=== PATIENT | male | born 1940 | race Caucasian/White ===

== ENCOUNTER 2016-09-07 07:01 | Day surgery (SDC) | payer MEDICARE ==
[~2016-09-07] VITALS: Ht 177.8 cm; Wt 101.3 kg
[2016-09-07] VITALS (19 sets, daily range): BP systolic 83–210; BP diastolic 31–94
[~2016-09-07 07:01] MED LIST: FESO4TAB2 PO; LACTATED RINGERS 1,000 ML IV SCH; LIDOCAINE/EPINEPHRINE 1%-1:100,000 (XYLOCAINE) 20ML VIAL ONE; ROPIVACAINE 0.2% 100 ML ONE; SIMV80TA3 PO
--- OUTSIDE RECORDS SUMMARY | 2016-09-07 07:05 | XMS REPORT | Summary of Care ---
Author Author Terence Peña T. K. 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, M19.041) Status: Active Pes anserinus bursitis of left knee (726.61, M70.52) Status: Active Primary osteoarthritis of both feet (715.17, M19.071) Status: Active Moderate aortic valve stenosis (424.1, I35.0) Status: Active Medications Name Dates Details Medication not documented Allergies and Adverse Reactions Name Dates Details No Known Drug Allergies (Allergy) Status: Active Past Medical History Name Dates Details History of No known problems (V49.89, Z78.9) Status: Resolved Procedures Procedure Dates Details History of Shoulder Surgery History of Hernia Repair Cardiology Precert (within facility) Ordered: 01-May-2016 CP Echo Ordered: 01-May-2016 Immunization Name Dates Details Immunizations not documented Family History Name Dates Details Family history of CABG Status: Active Name Dates Details Family history of Diabetes Mellitus (V18.0) Status: Active Social History Name Dates Details - Status: Name Dates Details Former smoker Vital Signs Date Test Result Details 01-May-2016 09:45 BP Systolic 148 mm[Hg] Status: Comments: Location: ; Position: BP Diastolic 70 mm[Hg] Status: Comments: Location: ; Position: Heart Rate 55 /min Status: Comments: Location: ; Weight 227.125 lb Status: Physical Findings 96 Status: Comments: O2 Saturation Body Mass Index Calculated 32.59 kg/m2 Status: Body Surface Area Calculated 2.2 m2 Status: Results Date Description Value Details 01-May-2016 08:54 ECG/ EKG (Specialists) Electro CardioGram 13:20 CP Echo Y Linked PDF Report Available for Review by Clicking ImageLink Button Plan of Care Name Dates Details Planned Observations Planned Goals not documented Instructions Name Dates Details Instructions not documented Encounters Appointment; Crys Pratt M.D. Encounter Diagnosis: Problem not documented On 01-May-2016 10:15 Appointment; Avery Jones M.D. Encounter Diagnosis: Problem not documented On 09-Dec-2015 12:30 Appointment; Crys Pratt M.D. Encounter Diagnosis: Problem not documented On 03-May-2015 10:00
[2016-09-07] MEDS: SODIUM CHLORIDE FLUSH 3 ML SYR IV PRN ×2 (07:56→13:01)
[2016-09-07] MEDS ORDERED: MIDAZOLAM 2 MG/2 ML (VERSED) VIAL ONE (08:06)
[2016-09-07] MEDS ORDERED: REMIFENTANIL 1 MG (ULTIVA) VIAL IV ONE (08:07)
[2016-09-07] MEDS ORDERED: PROPOFOL 40 ML IV ONE (08:12)
[2016-09-07] MEDS ORDERED: ONDANSETRON 2 MG/ML (Z0FRAN) 2 ML VIAL ONE (08:32)
[2016-09-07] MEDS ORDERED: ONDANSETRON 2 MG/ML (Z0FRAN) 2 ML VIAL IV PRN (10:10)
[2016-09-07] MEDS ORDERED: METOCLOPRAMIDE 10 MG/2 ML (REGLAN) VIAL IV PRN (10:10)
[2016-09-07] MEDS ORDERED: morphine INJ 4 MG/ML 1 ML SYRINGE IV PRN (10:10)
[2016-09-07] MEDS ORDERED: KETOROLAC 15 MG/ML (TORADOL) 1 ML VIAL IV PRN (10:15)
--- NOTE | 2016-09-07 10:44 | NUR ---
ANESTHESIA NOTIFIED OF INCREASING BLOOD PRESSURE AND LOW PULSE RATE. INSTRUCTIONS GIVEN TO NOTIFY PRIMARY DR. DR ESTRADA'S NURSE GELACIO NOTIFIED AND IS GOING TO CALL AFTER SHE HAS TALKED TO
--- NOTE | 2016-09-07 10:47 | OPERATIVE REPORT ---
DATE OF OPERATION: 09/07/2016 PRE-OPERATIVE DIAGNOSIS: Right inguinal hernia. POST-OPERATIVE DIAGNOSIS: 1. Right inguinal hernia. 2. Evidence of previous right inguinal surgery. OPERATIVE PROCEDURE: Right inguinal hernia repair with mesh plug. SURGEON: Sebastian William MD ASSEM[employer]ER [employer]Y: COLTON Peña ANESTHESIA: Monitored anesthesia care with local. INDICATION: Mr. Kaur is a 75-year-old referred by Dr. Parth Storey with a symptomatic right inguinal hernia. He has had a previous inguinal hernia and an umbilical hernia repaired. He presents today for elective repair of this right-sided hernia. DESCRIPTION OF PROCEDURE: The patient was informed of the risks and benefits and agreed to proceed. He was taken to the operating room and place supine on a standard operating table. He was administered IV sedation. When properly sedated, his right groin was prepped and draped in standard sterile fashion. There is a long oblique surgical scar well below the inguinal ligament that does not correspond to any of his listed previous operations, and was not noticed when I examined him in the office. 1% lidocaine with epinephrine was used to achieve a right ilioinguinal nerve block, and then the anesthetic was injected in the skin above the inguinal crease. A transverse incision was made with a 15-blade scalpel through the skin to the pubic tubercle and lateral out over the inguinal canal. That section was carried forth with cautery through the Benoit's fascia and the subcutaneous adipose tissue. Small branches of the superficial epigastric vein were easily cauterized and none of these were of significant size. The external oblique fascia was exposed and the retractors repositioned. This fascia was then opened longitudinally down to the external inguinal ring. Blunt dissection was used to separate the inguinal canal contents from the underside of the external oblique fascia, and it was readily apparent that the anatomy was unusual. The spermatic cord did not appear to be in its usual location, and the internal inguinal ring appeared to have been moved medially to a location right above the pubic tubercle, where the hernia sac could easily been seen. The floor of the inguinal canal, which consisted of the internal oblique muscle, appeared to be strong and intact with no evidence of hernia in that location. Blunt dissection was used to encircle the hernia sac and the spermatic cord structures over the pubic tubercle and a Juliana drain was used for retraction. The hernia sac was then gently dissected away from the cord structures until it was mobilized down to its entrance from underneath the internal oblique muscle. The hernia sac was then gently opened and its contents, consisting of fat, were reduced. The sac was twisted and suture ligated with 2-0 Vicryl and removed. This essential represented an indirect hernia, except that the location of the hernia was right over the pubic tubercle. Therefore, I decided to use a small ultra-pro mesh plug to repair it. This plug was placed within the defect and sutured to the fascia overlying the pubic tubercle using 2-0 Prolene medially, to the adjacent muscle superiorly and laterally, and to Shubham's ligament inferiorly. The shelving edge of the inguinal ligament was difficult to discern, possible due to the previous surgery. Hemostasis was complete. The retractors were then removed along with the Juliana drain, and the external oblique fascia was closed with running 2-0 Vicryl. The Q-pump catheter was inserted through the skin above the incision into the wound, and secured with Dermabond and Steri-Strips. Benoit's fascia was closed with interrupted 3-0 Vicryl and the skin was closed with subcuticular 4-0 Monocryl. Dressings were applied. The patient tolerated the procedure without complications. He went to recovery in stable condition.
--- NOTE | 2016-09-07 11:13 | NUR ---
GELACIO ELAM FROM DR TOURE OFFICE CALLED BACK AND STATED AND WANTED THE HOSPITALIST EVALUATE. HOSPITALIST CALLED AND ORDERS GIVEN TO ADMIT TO FLOOR FOR OBSERVATION
--- NOTE | 2016-09-07 11:30 | NUR ---
Admit to room 303 from [facility] to consult with Dr. Chicas. Elevated BP and bradycardia. Came by w/c. Alert and oriented. Denies any pain. Incisional dressing dry and intact. Q pump in place. Vitals taken and telemetry leads applied.
--- NOTE | 2016-09-07 11:49 | NUR ---
HARVEY ELAM TOOK PATIENT TO ROOM VIA W/C AT 1140AM. REPORT WAS CALLED AND ACCEPTED BY BRISA ELAM
[2016-09-07] MEDS ORDERED: NITROGLYCERIN SUBLINGUAL 0.4 MG (NITROQUICK) TABLET SL PRN (12:00)
[2016-09-07] MEDS ORDERED: hydrALAZINE 20 MG/ML (APRESOLINE) 1 ML VIAL IV PRN ×2 (12:00→16:00)
--- NOTE | 2016-09-07 12:19 | Progress Note (E) ---
Progress Note INTERNAL MEDICINE CONSULT PCP: Parth Storey MD CC: Bradycardia and hypertension, post-op inguinal hernia repair. HPI Sancho Kaur is a 75 year old male evaluated from [facility] where he presented today for scheduled repair of right inguinal hernia. Preoperatively he was somewhat hypertensive but he was closely monitored during surgery and reportedly , vitals were stable. In recovery room after surgery, he was noted to have persistent bradycardia with HR in 30-40's. BP was also elevated, max 210/94. For these concerns, internal medicine was consulted. He was brought from [facility] to med/surg for further evaluation. On arrival to unit, awake, interactive, oriented. Says he doesn't feel any out of ordinary complaints. Has some pain in right groin related to the surgery he just had today. Regarding bradycardia, says he has always had this, with heart rate in 50's at times. Does work out regularly and does jog on treadmill. Has seen Dr. Pratt at [facility] for bradycardia in April 2016. EKG and echo were done there. Patient was told he has aortic stenosis but was told at this time, no major concerns. Supposed to follow-up in 1 year. Regarding blood pressure, hasn't had high blood pressure problems before. Doesn' t take blood pressure medication at home. Hasn't been checking BP on regular basis. Denies chest pain, MUÑOZ, or any other concerns. PMH * Right inguinal hernia * Bradycardia (noted on vitals from surgery clinic visit 07/28/2016 * Aortic stenosis * HLD * No prior history of hypertension * BPH PSH * Right inguinal hernia repair 09/07/2016 * Left inguinal hernia repair * TURP * Colonoscopy x 2 * Tonsillectomy and adenoidectomy * Achilles tendon repair * Knee arthroscopy, left * Rotator cuff repair, bilateral * Umbilical hernia repair ALLERGIES: Please see list at end of report. HOME MEDICATIONS: Please see list at end of report. FH Father had cancer. Brother had lung cancer, HTN, stroke. Mother had ovarian cancer. SH Lives with in [place]. Works for [employer] as a cook. Exercises regularly. No smoking, no drug use. Rare alcohol consumption. ROS CONSTITUTION: Denies weight loss or gain. Denies fever or chills. HEENT: No change in vision or hearing. No sores in mouth, sore throat. CV: No chest pain, palpitations. PULM: No cough, shortness of breath, difficulty breathing. GI: No upset stomach, nausea, vomiting, constipation, or diarrhea. No blood in stool. : No dysuria. No blood in urine. MS: No new muscle or joint aches and pains. NEURO: No numbness or tingling. No weakness. INTEG: No rashes, lesions, or sores. ENDO: No heat or cold intolerance. No polydipsia or polyuria. HEME/LYMPH: No easy bruising or bleeding. No swollen glands. PSYCH: No change in mood or behavior. OBJECTIVE Vital Signs Date Time Temp Pulse Resp B/P Pulse Ox O2 Delivery O2 Flow Rate FiO2 09/07/16 10:55 39 15 191/74 96 Room air 09/07/16 09:54 97.4 GEN: Awake, alert, oriented, NAD at present. HEENT: EOMI, PERRL, clear sclerae, moist oral mucosa. CV: Bradycardic with systolic murmur III/ right sternal border. LUNGS: CTA B with no R/R/W. ABD: Soft, NT/ND with normal bowel sounds. Right inguinal surgical site noted. EXTR: Trace ankle edema. Normal peripheral pulses. INTEG: No rash. Age related changes. NEURO: No focal motor neuro deficit. Weight: 100 kg LABS: PENDING EKG 09/07 Sinus bradycardia with 1 AVB and incomplete right bundle branch block ( QRS = 110 ms) QTc 397 ms. ASSESSMENT Sancho Kaur is a 75 year old male evaluated from [facility] 09/07 for bradycardia and hypertension noted in recovery room after elective right inguinal hernia repair. He has underlying history of bradycardia and aortic stenosis, under the care of cardiology at [facility]. RECOMMENDATION * Bradycardia: History of, with likely aggravation from sedation for surgery. Less likely due to new cardiac condition such as ACS but this is considered. Does not take any rate controlling medications nor BP medications. EKG reassuring except for bradycardia. Request records from golf player assistant which should include EKG and echo. Monitor tele. Monitor troponin trend. * Hypertension: BP 210/94 in ASC. Not normally hypertensive at home but doesn't monitor BP much. Not on BP meds at home. Monitor closely. Hydralazine PRN SBP > 165 or DBP > 100. * Aortic Stenosis: Heart murmur noted on admit but already evaluated by golf player assistant. Review records. Observe. * Right Inguinal Hernia, S/P repair: Management per surgery. Has a ropivacaine pump for pain control. * HLD: simvastatin * F/E/N: CLD for now, advance to cardiac if OK with surgery. Peripheral IV. * Prophylaxis: Ambulate * Code Status: Full * Dispo: ASC status. Likely discharge in AM if BP and HR stabilize. ALEJANDRO SESAY MD September 07, 2016 12:06
[2016-09-07] MEDS ORDERED: ACETAMINOPHEN 325 MG TAB (TYLENOL) PO PRN (12:30)
[2016-09-07 12:33] LABS: BASOPHILS % (AUTO) 1 % (0-2); EOSINOPHILS # (AUTO) 0.1 10^3uL; EOSINOPHILS % (AUTO) 2 % (0-4); LYMPHOCYTES # (AUTO) 1.8 X10^3; MEAN CORPUSCULAR HEMOGLOBIN 30.5 PG (26.0-34.0); MEAN CORPUSCULAR HGB CONC 34.2 g/dL (31.0-37.0); MEAN CORPUSCULAR VOLUME 89 FL (80-100); MEAN PLATELET VOLUME 9.5 FL (6.0-9.5); MONOCYTES # (AUTO) 0.6 X10^3; MONOCYTES % (AUTO) 10 % (3-11); NEUTROPHILS # (AUTO) 3.6 X10^3; NEUTROPHILS % (AUTO) 59 % (51-67); PLATELET COUNT 196 10^3uL (150-450); WHITE BLOOD COUNT 6.13 10^3uL (4.0-11.0)
--- NOTE | 2016-09-07 13:01 | NUR ---
Apresoline given for elevated BP. Last reading 192/72.
[2016-09-07 13:02] LABS: ALBUMIN 4.2 g/dL (3.4-5.0); ALKALINE PHOSPHATASE 63 U/L (38-126); ANION GAP 11.4 MEQ/L (3-15); BUN/CREATININE RATIO 23 (10-20); TOTAL PROTEIN 7.6 g/dL (6.4-8.5)
[2016-09-07] MEDS ORDERED: ATOR10TA56 PO (13:10)
--- NOTE | 2016-09-07 13:30 | NUR ---
BP now 97/46 with HR of 46. Dr. Chicas notified.
--- NOTE | 2016-09-07 17:51 | Discharge Instructions (E) ---
Discharge Instructions Instructions * You were evaluated for slow heart rate and high blood pressure after your surgery for inguinal hernia. Your heart rate improved during the monitoring period. Your heart blood tests remained negative. Be sure to seek medical attention if you have chest pain, light-headedness, dizziness, shortness of breath, palpitations, or any other concern. * You had marked high blood pressure after your surgery. This was likely a reaction to anesthesia. You received one IV dose hydralazine which improved your blood pressure significantly. Your pressure went from a high of 210/94 to 125/59 by the time of discharge. At home, keep a record of your blood pressure. Check it once daily, at different times of day, and record these readings for review by your primary care doctor. If you have hypertension, your doctor can prescribe mediation if needed. Activity Instructions As tolerated, but follow the lifting and wound care instructions provided by surgery. Doctor's Appointment Follow-up with your primary care doctor in 3-5 days. Follow-up with surgery as previously directed. Discharge Diet: ALEJANDRO Finney MD September 07, 2016 17:51
--- NOTE | 2016-09-07 18:50 | NUR ---
Discharge instructions reviewed. IV and telemetry discontinued. IV catheter intact. Patient and voiced understanding of discharge.
--- NOTE | 2016-09-07 19:00 | NUR ---
Surgery discharge instructions reviewed and patient dismissed to home with . To exit per w/c accompanied by staff to exit.
[2016-09-07] MEDS ORDERED: NON-FORMULARY MEDICATION 1 EA EA (Simvastatin 80 MG) PO SCH (21:00)
[2016-09-07] MEDS ORDERED: ATORVASTATIN 10 MG (LIPITOR) TABLET PO SCH (21:00)
== END 2016-09-07 18:58 | disposition home or self-care (01) ==
LOC: ASC 07:01 → MED/SURG 11:43 → ASC 18:58
PROVIDERS: ATTEND Surgery
DX: K40.91 Unilateral inguinal hernia, without obstruction or gangrene, recurrent (principal); R00.1 Bradycardia, unspecified; I10 Essential (primary) hypertension; I35.0 Nonrheumatic aortic (valve) stenosis; E78.5 Hyperlipidemia, unspecified; N40.0 Benign prostatic hyperplasia without lower urinary tract symptoms
CPT/HCPCS: 36415; 49520; 80053; 84484; 85025; 85610; 85730; 93005; A9270; J0360; J2250; J2795; J7120

== ENCOUNTER 2016-09-10 09:05 | Emergency (ER) | payer MEDICARE ==
[~2016-09-10] VITALS: Ht 177.8 cm; Wt 100.0 kg
[~2016-09-10 09:05] MED LIST changes: +ATOR10TA56 PO; -LACTATED RINGERS 1,000 ML IV SCH; -LIDOCAINE/EPINEPHRINE 1%-1:100,000 (XYLOCAINE) 20ML VIAL ONE; -ROPIVACAINE 0.2% 100 ML ONE
[2016-09-10 09:14] VITALS: BP 157/72
[2016-09-10] MEDS ORDERED: ORPHENADRINE 60 MG/2 ML (NORFLEX) AMP IM ONE (09:55)
[2016-09-10] MEDS ORDERED: morphine INJ 10 MG/ML 1 ML VIAL IM ONE (09:55)
--- NOTE | 2016-09-10 10:17 | NUR ---
Patient report received from Britton Zhao RN. Care of this patient now assumed by this nurse.
--- NOTE | 2016-09-10 10:33 | NUR ---
IM injections (x2) have been given as ordered. Pt able to turn to his Lt side with minimal assist of spouse and tolerated injections well.
[2016-09-10] MEDS ORDERED: HYDR-3702 PO (11:37)
[2016-09-10] MEDS ORDERED: CHLO500T2 PO (11:37)
== END 2016-09-10 11:49 | disposition home or self-care (01) ==
LOC: EDUNIT# 09:05 → ED 09:08
DX: M54.2 Cervicalgia (principal); M62.838 Other muscle spasm
CPT/HCPCS: 96372; 99282; J2270; J2360